=== PATIENT | male | born 1980 | race Two or more races ===

== ENCOUNTER 2021-06-17 18:31 | Emergency (ER) | payer SELFPAY ==
[~2021-06-17] VITALS: Ht 172.7 cm; Wt 90.7 kg
[2021-06-17 18:31] VITALS: BP 142/79
== END 2021-06-17 21:12 | disposition left against medical advice (07) ==
LOC: ER 18:31
DX: R07.89 Other chest pain (principal); R10.9 Unspecified abdominal pain; R04.0 Epistaxis; Z53.21 Procedure and treatment not carried out due to patient leaving prior to being seen by health care provider